=== PATIENT | female | born 1955 | race Caucasian/White ===

== ENCOUNTER → 2016-12-12 09:02 | Outpatient (CLI) | payer BC ==
[2012-12-26 08:15] VITALS: BMI 25.1
[~2016-12-12 09:02] MED LIST: AMBIEN10 MG PO; ESTRACE2 MG PO; LANOXIN125 MCG PO; RYTHMOL150 MG; SYNTHROID50 MCG PO; TOPROL XL100 MG PO
== END | disposition home or self-care (01) ==
LOC: D.CT 09:00
DX: R59.0 Localized enlarged lymph nodes (principal)

== ENCOUNTER → 2018-01-02 12:51 | Outpatient (CLI) | payer BC ==
[2012-12-26 08:15] VITALS: BMI 25.1
== END | disposition home or self-care (01) ==
LOC: D.US 12:51
DX: R10.13 Epigastric pain (principal)

== ENCOUNTER → 2018-01-25 08:02 | Outpatient (CLI) | payer BC ==
[2012-12-26 08:15] VITALS: BMI 25.1
== END | disposition home or self-care (01) ==
LOC: D.RAD 08:00
DX: R12 Heartburn (principal); R10.84 Generalized abdominal pain

== ENCOUNTER → 2018-05-15 13:46 | Outpatient (CLI) | payer BC ==
[2012-12-26 08:15] VITALS: BMI 25.1
== END | disposition home or self-care (01) ==
LOC: D.CT 05-08 16:00
PROVIDERS: ATTEND Family Medicine
DX: M25.562 Pain in left knee (principal)

== ENCOUNTER 2018-12-06 09:25 | Day surgery (SDC) | payer BC ==
[2018-12-05 10:02] LABS: HEMATOCRIT 39.8 % (36.0-48.0); HEMOGLOBIN 13.3 g/dL (12-16); MCH 31.1 pg (26.0-34.0); MCHC 33.4 g/dL (31.0-37.0); MCV 93.2 fL (80.0-100.0); RBC 4.27 10x6/uL (4.00-5.40); WBC 4.3 10x3/uL (4.8-10.8)
[2018-12-05 10:14] LABS: INR 1.53 (0.85-1.17); PROTIME 17.8 SECONDS (11.6-15.0)
[2018-12-05 10:15] LABS: APTT 34.5 SECONDS (22.8-39.4)
[2018-12-05 10:21] LABS: ALBUMIN 4.1 g/dL (3.4-5.0); ANION GAP 5.3 mmol/L (8-16); BILIRUBIN - TOTAL 0.62 mg/dL (0.2-1.3); CALCIUM 9.4 mg/dL (8.5-10.1); CARBON DIOXIDE 36.1 mmol/L (21.0-32.0); POTASSIUM - SERUM 3.4 mmol/L (3.5-5.1); PROTEIN - SERUM 7.9 g/dL (6.4-8.2)
[~2018-12-06] VITALS: Ht 160 cm; Wt 66.7 kg
[~2018-12-06 09:25] MED LIST changes: +COUMADIN5 MG PO; +FLECAINIDE ACET50 MG PO; +PAROXETINE HCL10 MG PO; +PAXIL30 MG PO; +TRIAMTERENE-HC1 EAC3 PO; +XANAX0.25 MG PO
[2018-12-06 10:23] VITALS: BP 123/71; Ht 160 cm; Wt 66.7 kg
[2018-12-06] MEDS ORDERED: HYDROCODON-ACE1 EAC7 PO (12:43)
--- NOTE | 2018-12-06 15:39 | OP ---
PATIENT NAME: KHADAR TRAVIS MEDICAL RECORD: [id number] :57 LOCATION:[facility] ADMISSION DATE: SURGEON: DARION ALVARADO DO DATE OF OPERATION: 12/06/2018 PROCEDURE PERFORMED: Left knee arthroscopy with partial medial meniscectomy. PREOPERATIVE DIAGNOSIS: Left knee medial meniscal tear. 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 INDICATIONS: Ms. Travis is a 63-year-old female, who has had this left knee pain for quite some time, catching, popping, and locking. She cannot have an MRI due to pacemaker, but she is tired of dealing with the symptoms of popping, catching, and locking and the pain. I informed her the risks due to the fact that she does have all the signs of a meniscal tear, but due to her age, she may have some arthritis even though her x-rays do not indicate that. She was okay with that knowing that she may need a total knee in the future even if we scoped it, but she had more symptoms of meniscal tear. She was willing to take that risk to get rid of the pain. She is aware of the risks also of blood clots and even . She signed the consent. SURGEON: Darion Alvarado DO DESCRIPTION OF PROCEDURE: The patient was taken to the operative suite, laid in supine position, given general anesthetic and LMA was placed, given a gram of Ancef preoperatively. Left lower extremity was then prepped and draped in sterile fashion. A time-out was performed. Everyone was in agreement with the correct side, site, patient, and procedure. The knee was then flexed down and 2 mL of 0.5% Marcaine with epinephrine injected in the medial and lateral portal sites. The lateral portal was then established with an 11-blade scalpel. Trocar was entered into the knee, into the suprapatellar pouch. A grade IV chondromalacia was seen on the patella at that time. There were no loose bodies seen in the suprapatellar pouch or the lateral gutter or medial gutter. The knee was then flexed down and the medial compartment was entered. The 18-gauge spinal needle was then used to establish a medial portal and an 11-blade scalpel. Trocar was then entered in the knee. The probe was then brought in. A grade III chondromalacia was seen on the medial femoral condyle as well as the full-thickness meniscal tear almost completely to the periphery and the middle aspect of the meniscus. Shaver was then brought in to trim this out. This was trimmed out to a nice stable position and some of the chondromalacia. The cartilage was taken off the medial femoral condyle as well that was hanging on. This was smoothed out. The probe was then brought in. ACL was probed and seen to be in good condition as well. Knee was in [id number] and the lateral compartment was entered. The cartilage was in good position in the lateral compartment as well as the meniscus. There were no tears seen in there. The scope was then put under the patella and the shaver was brought in and abrasion chondroplasty was done on the patella. Cartilage was removed from it. The water was turned off and the suction was turned on and the scope portals were closed with 4-0 Monocryl in an inverted interrupted fashion. Steri-Strips, Adaptic, 4 x 4, ABD, Webril, Osmel wrap were then placed on the knee. HUGH stockings up to the knee. She was awakened and taken to recovery in stable condition. OPERATIVE REPORT [id number] KHADAR TRAVIS BLOOD LOSS: Minimal. COMPLICATIONS: None. TRANSINT:[id number] Voice Confirmation ID: [id number] DOCUMENT ID: [id number] DARION ALVARADO DO at 1539 CC: [id number] DICTATION DATE: 12/06/18 1248 [employer]GER [employer] DELIVERY: 12/06/18 1408 [facility] 12/06/18 [facility] [address] [id number]
== END 2018-12-06 14:44 | disposition home or self-care (01) ==
LOC: D.OPS 09:25 → D.PAN 12:00 → D.OPS 12:00 → D.PAN 12:35 → D.OPS 12:35
PROVIDERS: Anesthesiology; ATTEND Orthopaedic Surgery
DX: S83.242A Other tear of medial meniscus, current injury, left knee, initial encounter (principal); X58.XXXA Exposure to other specified factors, initial encounter